=== PATIENT | female | born 1960 | race Two or more races ===

== ENCOUNTER → 2024-08-04 06:18 | Day surgery (SDC) | payer BC, SELFPAY | LOC: GI 06:18 | PROVIDERS: ATTENDING PHYSICIAN Internal Medicine Gastroenterology; FAMILY PHYSICIAN Family Medicine | DX: Z12.11 Encounter for screening for malignant neoplasm of colon (principal); D12.5 Benign neoplasm of sigmoid colon; D12.4 Benign neoplasm of descending colon; D12.8 Benign neoplasm of rectum; D17.79 Benign lipomatous neoplasm of other sites; Z86.010 Personal history of colon polyps | CPT/HCPCS: 45385; 88305 ==

== ENCOUNTER → 2025-06-26 09:47 | Outpatient (REF) | payer BC, SELFPAY | LOC: HWRAD 09:47 | PROVIDERS: ATTENDING PHYSICIAN Family Medicine | DX: M25.562 Pain in left knee (principal) | CPT/HCPCS: 73564 ==

== ENCOUNTER → 2025-08-26 06:55 | Outpatient (REF) | payer BC, SELFPAY | LOC: PAVMRI 06:55 | PROVIDERS: ATTENDING PHYSICIAN Physician Assistant Surgical; FAMILY PHYSICIAN Family Medicine | DX: M23.92 Unspecified internal derangement of left knee (principal); M25.00 Hemarthrosis, unspecified joint | CPT/HCPCS: 73721 ==

== ENCOUNTER → 2025-10-02 07:48 | Outpatient (REF) | payer BC, SELFPAY | LOC: RAD 07:48 | PROVIDERS: ATTENDING PHYSICIAN Family Medicine | DX: M75.81 Other shoulder lesions, right shoulder (principal) | CPT/HCPCS: 73030 ==